=== PATIENT | female | born 1950 | race Hispanic/Latino ===

== ENCOUNTER → 2019-01-29 | Day surgery (SDC) | payer MEDICARE ==
[2019-01-23 16:08] LABS: BASOPHILS # (AUTO) 0.1 (0.0-0.1); EOSINOPHILS # (AUTO) 0.2 (0.0-0.4); EOSINOPHILS % 2.5 % (0.0-6.0); HEMATOCRIT 28.6 % (34.2-44.1); HEMOGLOBIN 9.9 g/dL (12.0-16.0); LYMPHOCYTES # (AUTO) 2.9 (1.0-3.2); LYMPHOCYTES % 42.4 % (18.0-39.1); MEAN CORPUSCULAR HEMOGLOBIN 30.7 pg (28-32); MEAN CORPUSCULAR HGB CONC 34.6 g/dL (31-35); MEAN CORPUSCULAR VOLUME 88.5 fL (81-99); MONOCYTES # (AUTO) 0.6 (0.2-0.8); MONOCYTES % 8.7 % (4.4-11.3); NEUTROPHILS # (AUTO) 3.1 (2.1-6.9); NEUTROPHILS % 45.3 % (38.7-80.0); PLATELET COUNT 201 x10e3/uL (140-360); RED BLOOD COUNT 3.23 x10e6/uL (3.6-5.1); RED CELL DISTRIBUTION WIDTH 12.1 % (11.7-14.4)
--- NOTE | 2019-01-23 16:15 | Diagnostic Imaging Report ---
Chest, 2 views, 01/23/2019. History: Preop, foot surgery. Comparison: None available. Findings: The cardiomediastinal silhouette and pulmonary vasculature are within normal limits. The lungs are clear without evidence of consolidation or pleural effusion. There are no acute osseous or soft tissue abnormalities. Impression: No acute cardiopulmonary abnormality. Signed by: Sudhir Weaver on 01/23/2019 4:11 PM
[2019-01-23 16:23] LABS: ANION GAP 12.4 mmol/L (8-16); CALCIUM 9.6 mg/dL (8.4-10.2); CREATININE, SERUM 1.19 mg/dL (0.57-1.11); POTASSIUM 4.4 mmol/L (3.5-5.1)
[~2019-01-29] MED LIST: ATORVASTATIN CA20 MG PO; BUPIVACAINE HCL 0.5% INJ 30 ML VIAL INJ ONE; CEFAZOLIN SOD 1 GM/NS 50ML 100 ML IV ONE; CRESTOR40 MG PO; DEXAMETHASONE SOD PHOS INJ 4 MG/ML VIAL ONE; GLIMEPIRIDE1 MG PO; GLIPIZIDE XL10 MG PO; IBUPROFEN200 MG PO; KETOROLAC TROMETHAMINE 30 MG/ML VIAL ONE; LEVOTHYROXINE75 MCG PO; LIDOCAINE HCL 2% LOCAL INJ 5 ML SDV VIAL INJ ONE; LISINOPRIL-HCT1 EACH; LOSARTAN-HCTZ1 EAC1 PO; METFORMIN HCL1000 MG PO; MUPIROCIN 2% OINT 22 GM TUBE ONE; ONDANSETRON HCL INJ 2MG/ML 2ML 2 MG/ML VIAL ONE; PRANDIN2 MG PO; PROPOFOL IV EMULSION 10 MG/ML 20 ML VIAL ONE; SERTRALINE HCL50 MG PO; SEVOFLURANE INHAL SOLN 250 ML PEN BTL ONE; XARELTO10 MG PO
--- OUTSIDE RECORDS SUMMARY | 2019-01-29 06:31 | XMS REPORT ---
Author Author [facility] Address Unknown Phone Unavailable Care Team Providers Care Picture Enlarger Name Role Phone ROBBI GARCIAS Unavailable Unavailable Problems This patient has no known problems. Allergies, Adverse Reactions, Alerts This patient has no known allergies or adverse reactions. Medications This patient has no known medications. Results Test Description Test Time Test Comments Text Results Atomic Results Result Comments CHEST 2 VIEWS 2019 16:11:00 [place] [id number] Patient Name: MCKENZIE JOY MR #: [id number] : 1950 Age/Sex: 69/F Req #: [id number] Adm Physician: Ordered by: HUNG LEE MD Report #: [id number] Location: OR Room/Bed: Procedure: [id number] DX/CHEST 2 VIEWS Exam Date: Exam Time: REPORT STATUS: Signed Chest, 2 views, 2019. History: Preop, foot surgery. Comparison: None available. Findings: The cardiomediastinal silhouette and pulmonary vasculature are within normal limits. The lungs are clear without evidence of consolidation or pleural effusion. There are no acute osseous or soft tissue abnormalities. Impression: No acute cardiopulmonary abnormality. Signed by: Sharita Weaver on 2019 4:11 PM Dictated By: SHARITA WEAVER MD 10 Transcribed By: MEJIA on 01/23/191610 COPY TO: HUNG LEE MD
[2019-01-29 10:25] VITALS: BP 140/68
--- NOTE | 2019-01-29 11:49 | Operative Report ---
DATE OF PROCEDURE: 01/29/2019 SURGEON: Court Bird DPM PREOPERATIVE DIAGNOSES: 1. Dislocated MPJ. 2. Plantar flexed, 2nd metatarsal. 3. Hammertoe, 2nd. POSTOPERATIVE DIAGNOSES: 1. Dislocated MPJ. 2. Plantar flexed, 2nd metatarsal. 3. Hammertoe, 2nd. PROCEDURES: 1. Tenotomy and capsulotomy, 2nd MPJ. 2. Dorsiflex ray osteotomy, 2nd. 3. Arthrodesis PIP, 2nd. PATHOLOGY: None. ANESTHESIA: General anesthetic. HEMOSTASIS: Pneumatic ankle tourniquet. ESTIMATED BLOOD LOSS: Less than 10 mL. MATERIALS: Human allograft was inserted to prevent adhesions to promote healing. COMPLICATIONS: None. CONDITION: Stable. PROCEDURE IN DETAIL: Under mild sedation, the patient was brought to the operating room, placed on the operative table in the supine position. Following IV sedation, anesthesia was obtained with a general anesthetic. At this point, the left foot scrubbed, prepped, and draped in usual aseptic manner. Attention was then directed to the 2nd MPJ, where the digit was completely dislocated. Utilizing a #15 blade, a linear incision was made overlying the MPJ. Incision was deepened down to the level of the capsule. Linear capsulotomy was performed. The capsule was then reflected off the head of the 2nd metatarsal. An areas of contracture at the medial aspects were loosened, utilizing a McGlamry elevator all contractures and adhesions were released. Attention was then directed to the 2nd metatarsal, where utilizing an oscillating saw, Phill osteotomy was performed through and through, it was then secured utilizing a screw. There was noted to be adequate alignment clinically and with the use of intraoperative fluoroscopy. Attention was then directed to the PIPJ joint, where a linear incision was made overlying the area. The incision was deepened down to the level of the tendon. The extensor tendon was then tenotomized in a transverse fashion. The PIPJ joint was then removed and it was then secured utilizing a Smart toe. There was noted to be adequate alignment clinically and with the use of intraoperative fluoroscopy. The use of human allograft was then inserted after the area was then flushed with copious amount of normal sterile saline solution. The capsule was then closed with 3-0 Vicryl and then the tendon with 3-0 Vicryl. Human allograft was inserted to prevent adhesions to promote healing and the skin was closed with 4-0 nylon. The patient tolerated the procedure and anesthesia well without complications, was transported to recovery room with vital signs stable and vascular status intact. The patient will be discharged home when she meets criteria. She was given instructions to be nonweightbearing to ice and elevate the foot while at rest. Followup with me in the office and to call the office for any questions, concerns, or new problems arise. MATTI Parada/LAVONL /[id number]
== END | disposition home or self-care (01) ==
LOC: OR 06:24
PROVIDERS: ATTEND Podiatrist Foot & Ankle Surgery
DX: S93.125A Dislocation of metatarsophalangeal joint of left lesser toe(s), initial encounter (principal); M21.272 Flexion deformity, left ankle and toes; M20.42 Other hammer toe(s) (acquired), left foot; M24.575 Contracture, left foot; E11.9 Type 2 diabetes mellitus without complications; E03.9 Hypothyroidism, unspecified; I10 Essential (primary) hypertension; E78.5 Hyperlipidemia, unspecified; F32.9 Major depressive disorder, single episode, unspecified; X58.XXXA Exposure to other specified factors, initial encounter; Z01.810 Encounter for preprocedural cardiovascular examination; Z01.812 Encounter for preprocedural laboratory examination; Z01.818 Encounter for other preprocedural examination; Z79.84 Long term (current) use of oral hypoglycemic drugs; Z89.421 Acquired absence of other right toe(s); Z96.652 Presence of left artificial knee joint
CPT/HCPCS: 28270; 28285; 28308; 36415 ×2; 71046; 80048; 82948; 85025; 93005; C1713; J0690; J1885; J2001; J2405; J2704; Q4150; 76000; J1100

== ENCOUNTER 2019-10-09 15:08 | Inpatient (IN) | payer MEDICARE, OTHER ==
[~2019-10-09] VITALS: Ht 162.6 cm; Wt 83.9 kg
[~2019-10-09 15:08] MED LIST changes: -BUPIVACAINE HCL 0.5% INJ 30 ML VIAL INJ ONE; -CEFAZOLIN SOD 1 GM/NS 50ML 100 ML IV ONE; -DEXAMETHASONE SOD PHOS INJ 4 MG/ML VIAL ONE; -KETOROLAC TROMETHAMINE 30 MG/ML VIAL ONE; -LIDOCAINE HCL 2% LOCAL INJ 5 ML SDV VIAL INJ ONE; -MUPIROCIN 2% OINT 22 GM TUBE ONE; -ONDANSETRON HCL INJ 2MG/ML 2ML 2 MG/ML VIAL ONE; -PROPOFOL IV EMULSION 10 MG/ML 20 ML VIAL ONE; -SEVOFLURANE INHAL SOLN 250 ML PEN BTL ONE
--- OUTSIDE RECORDS SUMMARY | 2019-10-09 15:12 | XMS REPORT ---
Author Author MCKENZIE DRISCOLL Organization Unknown Address Unknown Phone Care Team Providers Care Geomagnetician Name Role Phone MICHELE DRISCOLL PP Unavailable Reason for Referral No Reason for Referral was given. History of Present Illness No HPI available. Problems * Normal Routine History And Physical Adult (V70.0); (Active) * Dysthymic Disorder (300.4); (Active) * Hypertension (401.9); (Active) * Hypothyroidism (244.9); (Active) * Type 2 Diabetes Mellitus (250.00); (Active) * Vaccines Prophylactic Need (V05.9); (Active) Medication * Glimepiride 1 MG Oral Tablet; TAKE 1 TABLET DAILY. (Active) * MetFORMIN HCl 1000 MG Oral Tablet; TAKE 1 TABLET TWICE DAILY. (Active) * Lisinopril-Hydrochlorothiazide 20-12.5 MG Oral Tablet; TAKE 1 TABLET DAILY. (Active) * Sertraline HCl 50 MG Oral Tablet; TAKE 1 TABLET DAILY. (Active) * Levothyroxine Sodium 50 MCG Oral Tablet; TAKE 1 TABLET DAILY. (Active) * Vitamin E CAPS; 1000 daily (Active) * Calcium 600 TABS; TAKE 2 TABLETS DAILY. (Active) Allergies and Adverse Reactions * No Known Drug Allergies (Active) Past Medical History * History of Joint Pain, Localized (419.40); (Resolved) Procedures Procedure Procedure Date Date Completed Status Appendectomy - - Resolved Cholecystectomy - - Resolved Tubal Ligation - - Resolved Immunization * Tdap - Administered on: 09/29/2007 * Pneumo - Administered on: 02/29/2008 * Influenza - Administered on: 02/10/2012 * Fluzone Intramuscular Injectable (Lot #: [id number]) - Administered on: 06/06/2013 Family History * Family history of Denial Of Any Significant Medical History (Active) Social History * Marital History - Currently (Active) * Never A Smoker (Active) * Never Drank Alcohol (Active) Advance Directives * No Advance Directives available. Encounters * AUDIT 06/10/2013
--- OUTSIDE RECORDS SUMMARY | 2019-10-09 15:12 | XMS REPORT ---
Author Author MCKENZIE Green Organization Unknown Address Unknown Phone Care Team Providers Care Stitch Bonding Machine Drawer In Name Role Phone Nicky Green PP Reason for Referral No Reason for Referral was given. History of Present Illness No HPI available. Problems * Normal Routine History And Physical Adult (V70.0); (Active) * Type 2 Diabetes Mellitus (250.00); (Active) * Hypertension (401.9); (Active) * Hypothyroidism (244.9); (Active) * Dysthymic Disorder (300.4); (Active) Medication * Glimepiride 1 MG Oral [...] History * History of Joint Pain, Localized (846.40); (Resolved) Procedures Procedure Procedure Date Date Completed Status Appendectomy - - Resolved Cholecystectomy - - Resolved Tubal Ligation - - Resolved Immunization * Tdap - Administered on: 09/29/2007 * Pneumo - Administered on: 02/29/2008 * Influenza - Administered on: 02/10/2012 Family History * Family history of Denial Of Any Significant Medical History (Active) Social History * Marital History - Currently (Active) * Never A Smoker (Active) * Never Drank Alcohol (Active) Advance Directives * No Advance Directives available. Encounters * AUDIT 06/04/2013 * [facility], Provider: MICHELE DRISCOLL, Status: Rashid, Time: 8:30 AM 06/06/2013
--- OUTSIDE RECORDS SUMMARY | 2019-10-09 15:12 | XMS REPORT | Continuity of Care Document ---
Author Author [employer] [employer] Address Unknown Phone Unavailable Care Team Providers Care Web Press Operator Assistant Name Role Phone [employer] Unavailable Un available Problems Problem Status Onset Date Classification Date Reported Comments Source Type 2 Diabetes Mellitus Active 06/10/2013 [facility] Hypertension Active 06/10/2013 [facility] Hypothyroidism Active 06/10/2013 [facility] Dysthymic Disorder Active 06/10/2013 [facility] Vaccines Prophylactic Need Act dick 06/10/2013 [facility] Medications Medication Details Route Status Patient Instructions Ordering Provider Order Date Source Glimepiride 1 MG Oral Tablet (Active) Active [facility] MetFORMIN HCl 1000 MG Oral Tablet (Active) Active [facility] Lisinopril-Hydrochlorothiazide 20-12.5 MG Oral Tablet (Active) Active [facility] Sertraline HCl 50 MG Oral Tablet (Active) Active [facility] Levothyroxine Sodium 50 MCG Oral Tablet (Active) Active [facility] Vitamin E CAPS (Active) Active [facility] Calcium 600 TABS (Active) Active [facility] Allergies, Adverse Reactions, Alerts Substance Category Reaction Severity Reaction type Status Date Reported Comments Source No Known Drug Allergies drug a llergy drug aller gy Active [facility] Immunizations Immunization Date Given Site Status Last Updated Comments Source Fluzone Intramuscular Injectable 06/06/2013 completed [facility] Influenza 02/10/2012 completed [facility] Pneumo 02/29/2008 completed [facility] Tdap 09/29/2007 completed [facility] Results No Data Provided for This Section Pathology Reports No Data Provided for This Section Diagnostic Reports No Data Provided for This Section Consultation Notes No Data Provided for This Section Discharge Summaries No Data Provided for This Section History and Physicals No Data Provided for This Section Vital Signs No Data Provided for This Section Encounters Location Location Details Encounter Type Encounter Number Reason For Visit Attending Provider ADM Date DC Date Status Source AUDIT [id number] 06/04/2013 06/04/2013 [facility] Guille COLLIER beka: MICHELE DRISCOLL, Status: Pen, Time: 8:30 AM [id number] 06/06/19 14 06/04/2013 [facility] AUDIT [id number] 06/10/2013 06/10/2013 [facility] Procedures No Data Provided for This Section Assessment and Plan No Data Provided for This Section Plan of Care No Data Provided for This Section Social History Social History Date Source Marital History - Currently (Active) Never A Smoker (Active) Never Drank Alcohol (Active) 06/10/2013 [facility] Family History Value Date S ource Family history of Denial Of Any Signific ant Medical History (Active) 06/10/2013 [facility] Family history of Denial Of Any Signific ant Medical History (Active) 06/04/2013 [facility] Advance Directives Order Name Results Value Date Source Advance Directives Advance Dir ectives No Advance Directives available. 06/10/2013 [facility] Advance Directives Advance Dir ectives No Advance Directives available. 06/04/2013 [facility] Functional Status No Data Provided for This Section
[2019-10-09] MEDS ORDERED: ONDANSETRON HCL INJ 2MG/ML 2ML 2 MG/ML VIAL IV STA (15:48)
[2019-10-09] MEDS ORDERED: PANTOPRAZOLE 40 MG 10ML VIAL IV STA (15:48)
[2019-10-09] MEDS ORDERED: SODIUM CHLORIDE 0.9% 500ML 500 ML IV ONE (16:00)
[2019-10-09 16:32] LABS: BASOPHILS % 0.2 % (0.0-1.0); EOSINOPHILS # (AUTO) 0.8 (0.0-0.4); EOSINOPHILS % 13.7 % (0.0-6.0); HEMATOCRIT 30.6 % (34.2-44.1); HEMOGLOBIN 9.9 g/dL (12.0-16.0); LYMPHOCYTES # (AUTO) 1.5 (1.0-3.2); LYMPHOCYTES % 25.9 % (18.0-39.1); MEAN CORPUSCULAR HEMOGLOBIN 28.4 pg (28-32); MEAN CORPUSCULAR HGB CONC 32.4 g/dL (31-35); MEAN CORPUSCULAR VOLUME 87.9 fL (81-99); MONOCYTES # (AUTO) 0.5 (0.2-0.8); MONOCYTES % 9.4 % (4.4-11.3); NEUTROPHILS # (AUTO) 2.9 (2.1-6.9); NEUTROPHILS % 50.3 % (38.7-80.0); PLATELET COUNT 161 x10e3/uL (140-360); RED BLOOD COUNT 3.48 x10e6/uL (3.6-5.1); RED CELL DISTRIBUTION WIDTH 13.2 % (11.7-14.4)
[2019-10-09 16:38] LABS: INR 0.99; PROTHROMBIN TIME 13.7 seconds (11.9-14.5)
[2019-10-09 16:39] LABS: PARTIAL THROMBOPLASTIN TIME 29.7 seconds (23.8-35.5)
[2019-10-09 16:41] LABS: BILIRUBIN,URINE NEGATIVE (NEGATIVE); CLARITY,URINE SL CLOUDY (CLEAR); COLOR,URINE YELLOW (YELLOW); KETONES,URINE TRACE (NEGATIVE); LEUKOCYTE ESTERASE ,URINE NEGATIVE (NEGATIVE); NITRITE,URINE NEGATIVE (NEGATIVE); PROTEIN,URINE DIPSTICK 2+ (NEGATIVE); URINE UROBILINOGEN 0.2 mg/dL (0.2 - 1)
[2019-10-09 16:52] LABS: ALBUMIN 3.8 g/dL (3.5-5.0); ANION GAP 14.9 mmol/L (8-16); CALCIUM 8.8 mg/dL (8.4-10.2); CREATININE, SERUM 1.77 mg/dL (0.57-1.11); POTASSIUM 3.9 mmol/L (3.5-5.1)
--- NOTE | 2019-10-09 16:54 | Diagnostic Imaging Report ---
EXAMINATION: CHEST SINGLE (PORTABLE) INDICATION: Dizziness, fatigue COMPARISON: Chest radiograph 01/23/2019 FINDINGS: LINES/TUBES:None LUNGS:The lungs are well-inflated. No focal consolidation or pulmonary edema. PLEURA:No pleural effusion or pneumothorax. MEDIASTINUM:The cardiomediastinal silhouette appears normal in size and shape. BONES/SOFT TISSUES:No acute osseous injury. ABDOMEN:No free air under the diaphragm. IMPRESSION: No focal pneumonia or pulmonary edema. Signed by: Louie Joshi MD on 10/09/2019 4:51 PM
[2019-10-09 16:56] LABS: BACTERIA,URINE MODERATE /HPF; WBC,URINE (MAN) 0-5 /HPF (0-5)
[2019-10-09 16:57] LABS: AMORPHOUS SEDIMENT,URINE MODERATE (FEW); EPITHELIAL CELLS,URINE MODERATE /LPF
[2019-10-09 16:58] LABS: CREATINE KINASE MB 10.1 ng/mL (0-5.0)
[2019-10-09] MEDS ORDERED: SODIUM CHLORIDE 0.9% 1000ML 1,000 ML IV SCH (17:45)
[2019-10-09] MEDS ORDERED: DEXTROSE 50% SYRINGE 50 ML IV PRN (17:45)
[2019-10-09] MEDS ORDERED: ONDANSETRON HCL INJ 2MG/ML 2ML 2 MG/ML VIAL IV PRN (17:45)
--- NOTE | 2019-10-09 17:56 | Diagnostic Imaging Report ---
Exam: Head CT without contrast History: Dizziness, headache Comparison studies: None Technique: Axial images were obtained from the skull base to the vertex. Coronal and sagittal images reconstructed from the axial data. Dose modulation, iterative reconstruction, and/or weight based adjustment of the mA/kV was utilized to reduce the radiation dose to as low as reasonably achievable. Radiation dose: Total DLP: 921.4 mGy*cm. Estimated effective dose: DLP x 0.015 Intravenous contrast: None Findings: Scalp: No abnormalities. Bones: No fractures, blastic or lytic lesions. Brain sulci: Sylvian fissures are mildly prominent Ventricles: Mild compensatory dilatation. No hydrocephalus. Extra-axial spaces: No masses, no fluid collection. Parenchyma: Chronic cortical/subcortical insult with encephalomalacia present in the left middle frontal gyrus. A few scattered hypodensities in the supratentorial white matter are nonspecific but are most compatible with chronic microvascular ischemic changes. Sellar/suprasellar region: No abnormalities. Craniocervical junction: Patent foramen magnum. No Chiari one malformation. Incidental findings: Atherosclerotic calcifications in the carotid siphons. IMPRESSION: No acute intracranial abnormalities. Chronic findings: 1. Mild generalized parenchymal volume loss. 2. Small chronic left middle frontal insult. 3. Mild chronic microvascular ischemic changes. Signed by: Dr. Ike Jaramillo M.D. on 10/09/2019 5:52 PM
--- OUTSIDE RECORDS SUMMARY | 2019-10-09 17:56 | XMS REPORT | Continuity of Care Document ---
Author Author [employer] Address Unknown Phone Unavailable Care Team Providers Care Hydraulic Auto Jack Mechanic Name Role Phone [employer] Unavailable Un available Problems Problem Status Onset Date Classification Date Reported Comments Source Type 2 Diabetes Mellitus Active 06/10/2013 [facility] Hypertension Active 06/10/2013 [facility] Hypothyroidism Active 06/10/2013 [facility] Dysthymic Disorder Active 06/10/2013 [facility] Vaccines Prophylactic Need Act dick 06/10/2013 [facility] Medications Medication Details Route Status Patient Instructions Ordering Provider Order Date Source Glimepiride 1 MG Oral Tablet (Active) Active [facility] MetFORMIN HCl 1000 MG Oral Tablet (Active) Active [facility] Lisinopril-Hydrochlorothiazide 20-12.5 MG Oral Tablet (Active) Active [facility] Sertraline HCl 50 MG Oral Tablet (Active) Active [facility] Levothyroxine Sodium 50 MCG Oral Tablet (Active) Active [facility] Vitamin E CAPS (Active) Active [facility] Calcium 600 TABS (Active) Active [facility] Allergies, Adverse Reactions, Alerts Substance Category Reaction Severity Reaction type Status Date Reported Comments Source No Known Drug Allergies drug a llergy drug aller gy Active [facility] Immunizations Immunization Date Given Site Status Last Updated Comments Source Fluzone Intramuscular Injectable 06/06/2013 completed [facility] Influenza 02/10/2012 completed [facility] Pneumo 02/29/2008 completed [facility] Tdap 09/29/2007 completed [facility] Results No Data Provided for This [...] ADM Date DC Date Status Source AUDIT [id number] 06/04/2013 06/04/2013 [facility] Guille COLLIER beka: MICHELE DRISCOLL, Status: Pen, Time: 8:30 AM [id number] 06/06/19 14 06/04/2013 [facility] AUDIT [id number] 06/10/2013 06/10/2013 [facility] Procedures No Data Provided for This Section Assessment and Plan No Data Provided for This Section Plan of Care No Data Provided for This Section Social History Social History Date Source Marital History - Currently (Active) Never A Smoker (Active) Never Drank Alcohol (Active) 06/10/2013 [facility] Family History Value Date S ource Family history of Denial Of Any Signific ant Medical History (Active) 06/10/2013 [facility] Family history of Denial Of Any Signific ant Medical History (Active) 06/04/2013 [facility] Advance Directives Order Name Results Value Date Source Advance Directives Advance Dir ectives No Advance Directives available. 06/10/2013 [facility] Advance Directives Advance Dir ectives No Advance Directives available. 06/04/2013 [facility] Functional Status No Data Provided for This Section
[2019-10-09] MEDS ORDERED: CEFDINIR300 MG PO (20:20)
[2019-10-09] MEDS ORDERED: LEVOTHYROXINE50 MCG PO (20:20)
[2019-10-09] MEDS ORDERED: OMEPRAZOLE40 MG PO (20:23)
[2019-10-09] MEDS ORDERED: METFORMIN HCL1000 M1 PO (20:23)
[2019-10-09] MEDS ORDERED: VITAMIN E400 UNI1 PO (20:23)
[2019-10-09] MEDS ORDERED: MECLIZINE HCL12.5 MG PO (20:24)
[2019-10-09 20:50] VITALS: BP 126/55
[2019-10-09] MEDS: INSULIN LISPRO 100 UNIT/1 ML 3ML VIAL SQ SCH (21:00)
--- NOTE | 2019-10-09 21:15 | NUR ---
PATIENT ARRIVED TO FLOOR STABLE WITH NO C/O PAIN OR DISCOMFORT. WAS CHANGED INTO HOSPITAL GOWN, TAKEN TO BATHROOM WITH USE OF WALKER AND EDUCATED ON ROOM SETUP. CALLED AND NOTIFIED DR. MORGAN OF PT ARRIVAL AND OFFERED TO CONT MEDS BUT STATES HE WILL HANDLE IN AM. COMPLETED ADMISSION.
[2019-10-09 21:33] VITALS: BP 126/55
[2019-10-09 21:45] VITALS: BP 126/55
--- NOTE | 2019-10-09 23:30 | NUR ---
RECEIVED REPORT FROM NURSE, PATIENT CONTINUE RESTING, NO DISTRESS NOTED. CALL LIGHT IN REACH. WILL CONTINUE TO MONITOR.
[2019-10-10] VITALS (7 sets, daily range): BP systolic 107–131; BP diastolic 53–65
--- NOTE | 2019-10-10 04:00 | NUR ---
CONTINUE RESTING, IV CONTINUE INFUSING, CALL LIGHT REMAIN IN REACH. WILL CONTINUE TO MONITOR.
[2019-10-10 06:01] LABS: BASOPHILS % 0.5 % (0.0-1.0); EOSINOPHILS # (AUTO) 0.7 (0.0-0.4); EOSINOPHILS % 13.3 % (0.0-6.0); HEMATOCRIT 28.6 % (34.2-44.1); HEMOGLOBIN 9.1 g/dL (12.0-16.0); LYMPHOCYTES # (AUTO) 1.9 (1.0-3.2); LYMPHOCYTES % 33.9 % (18.0-39.1); MEAN CORPUSCULAR HEMOGLOBIN 28.5 pg (28-32); MEAN CORPUSCULAR HGB CONC 31.8 g/dL (31-35); MEAN CORPUSCULAR VOLUME 89.7 fL (81-99); MONOCYTES # (AUTO) 0.4 (0.2-0.8); MONOCYTES % 7.7 % (4.4-11.3); NEUTROPHILS # (AUTO) 2.5 (2.1-6.9); NEUTROPHILS % 44.2 % (38.7-80.0); PLATELET COUNT 148 x10e3/uL (140-360); RED BLOOD COUNT 3.19 x10e6/uL (3.6-5.1); RED CELL DISTRIBUTION WIDTH 13.2 % (11.7-14.4)
--- NOTE | 2019-10-10 06:14 | NUR ---
H&P cc: diarrhea for 1 day HPI: 69yoF, PCP , developed diarrhea for 1 day; denies f/c/s. PMH: OA, anemia, hypothyroidism, DM2 PShx: cholecystectomy, appendectomy Allergies; see emr Fh/Sh; ; no cigs meds; see MAR ROS: no f/c/s/n/V/KENNEDY/cp/sob/skin rash/back pain/dizziness/vision changes/focal limb weakness v/sr revd PE tired appearing anicteric ns1s2 mod bs soft ntnd no e/t skin dyr flat affect alert labs/meds revd A/P: Diarrhea- flagyl GERRY- rehydrate Anemia- moderate UTI- IV abx DM2- hab1c/lipids Obesity- caloric restriction needed BMI 31.8 Prop: scd DIspo; PT consult; Jimmy Aldana MD, PhD
[2019-10-10 06:16] LABS: ALBUMIN 3.2 g/dL (3.5-5.0); ANION GAP 12.7 mmol/L (8-16); CALCIUM 8.1 mg/dL (8.4-10.2); CREATININE, SERUM 1.34 mg/dL (0.57-1.11); POTASSIUM 3.7 mmol/L (3.5-5.1)
[2019-10-10] MEDS ORDERED: ACETAMINOPHEN 325 MG TAB PO PRN (06:30)
[2019-10-10] MEDS ORDERED: ONDANSETRON HCL INJ 2MG/ML 2ML 2 MG/ML VIAL IV PRN (06:30)
[2019-10-10] MEDS ORDERED: DOCUSATE SODIUM 100 MG CAP PO PRN (06:30)
[2019-10-10] MEDS ORDERED: MECLIZINE HCL 12.5 MG TAB PO PRN (06:30)
[2019-10-10] MEDS: LEVOTHYROXINE SODIUM 50 MCG TAB PO SCH (07:06)
[2019-10-10] MEDS: CEFTRIAXONE SOD 1 GM/NS 50 ML 50 ML IV SCH (07:06)
--- NOTE | 2019-10-10 07:10 | NUR ---
PATIENT IS AWAKE, ALERT, AND IN STABLE CONDITION WITH NO S/S OF RESPIRATORY DISTRESS. NO PAIN VOICED. IV FLUIDS INFUSING. TELEMETRY APPLIED. PATIENT'S PERSONAL WALKER IS AVAILABLE FOR PATIENT IN ROOM. BED ALARM APPLIED. CALL LIGHT IS WITHIN REACH, PATIENT INSTRUCTED TO CALL FOR ASSISTANCE NEEDED.
[2019-10-10 07:23] LABS: CHOL/HDL RATIO 2.7 (3.0-3.6)
[2019-10-10] MEDS: INSULIN LISPRO 100 UNIT/1 ML 3ML VIAL SQ SCH ×4 (07:30→20:39)
[2019-10-10 07:36] LABS: CREATINE KINASE MB 7.6 ng/mL (0-5.0)
[2019-10-10] MEDS: SERTRALINE HCL 50 MG TAB PO SCH (08:18)
[2019-10-10] MEDS: PANTOPRAZOLE SOD 40 MG TABEC PO SCH (08:18)
[2019-10-10 10:02] LABS: EOSINOPHILS % (MANUAL) 10 % (0-7); LYMPHOCYTES % (MANUAL) 41 % (19-48); MONOCYTES % (MANUAL) 7 % (3.4-9.0); NEUTROPHILS % (MANUAL) 42 % (40-74); PLATELET ESTIMATE ADEQUATE; PLATELET MORPHOLOGY COMMENT NORMAL; RBC MORPHOLOGY COMMENT NORMAL
[2019-10-10] MEDS: SODIUM CHLORIDE 0.9% 1000ML 1,000 ML IV SCH ×2 (11:15→23:05)
--- NOTE | 2019-10-10 14:26 | NUR ---
PATIENT IS IN STABLE CONDITION WITH NO S/S OF RESPIRATORY DISTRESS. NO PAIN VOICED. TELEMETRY APPLIED. PATIENT OFF THE UNIT TO MRI.
[2019-10-10 14:35] LABS: CREATINE KINASE 52 IU/L (29-168)
[2019-10-10 14:45] LABS: CREATINE KINASE MB < 1.00 ng/mL (0-4.3)
--- NOTE | 2019-10-10 18:32 | Diagnostic Imaging Report ---
History: Dizziness, incontinence and decreased rectal tone Comparison studies: None Technique: Sagittal and axial T2 FS, axial DWI, axial T2*GRE, axial T1 FLAIR and axial coronal T2 FLAIR. Intravenous contrast: None Findings: Scalp: Normal in signal. No masses. Bone marrow: Normal in signal intensity. Brain sulci: Sylvian fissures are mildly prominent.. Ventricles: Mild compensatory dilatation. No hydrocephalus. Extra axial spaces: No mass, no fluid collection. Parenchyma: No mass, hemorrhage or acute ischemia. Chronic cortical/subcortical insults along the left middle frontal gyrus and right temporal subcortical white matter are unchanged. A few scattered and mildly confluent T2 FLAIR hyperintense foci in the supratentorial white matter are nonspecific but are most compatible with chronic microvascular ischemic changes. Age-related T2 FLAIR hyperintense signal changes present in the periventricular white matter. Suprasellar region: No abnormalities. Craniocervical junction: Patent foramen magnum. No Chiari malformation. Vessels: Normal flow-voids in the arteries and sinuses. IMPRESSION: No acute intracranial abnormalities. Chronic findings: 1. Mild generalized parenchymal volume loss. 2. Small chronic left middle frontal and right temporal insults. 3. Mild to moderate supratentorial microvascular ischemic changes. Signed by: Dr. Ike Jaramillo M.D. on 10/10/2019 6:29 PM
--- NOTE | 2019-10-10 18:49 | Diagnostic Imaging Report ---
History: Dizziness, incontinence, decreased rectal tone Comparison studies: None Technique: Sagittal and axial T1 and T2, sagittal STIR and axial T2*GRE. Intravenous contrast: None Findings: Alignment: Normal lordosis. No scoliosis. Minimal anterolisthesis of T2 on T3 is most likely degenerative in etiology. Cervicomedullary junction: No abnormalities. Patent foramen magnum. Soft tissues: No T2 hyperintense inflammatory changes. Spinal cord: Normal in size and grossly normal in signal from the foramen magnum through T1. Vertebrae: No fractures, infection or neoplasm. Degenerative changes: Loss of T2 disc signal at all cervical levels and within the included upper thoracic discs. C2-C3: Mild facet arthrosis. No significant canal or foraminal stenosis. C3-C4: Mild facet arthrosis. Patent canal and foramina. C4-C5: Small disc bulge and thickened ligamentum flavum result in mild canal stenosis. Moderate right facet arthrosis without significant foraminal stenosis. Patent left foramen. C5-C6: Mild canal stenosis due to an asymmetric right disc osteophyte complex. Moderate right and mild left foraminal stenosis due to uncovertebral arthrosis. Patent left foramen. C6-C7: Mild canal stenosis due to disc osteophyte complex and thickened ligamentum flavum. Moderate bilateral foraminal stenosis due to uncovertebral arthrosis. C7-T1: Patent canal and foramina. IMPRESSION: 1. Mild multilevel disc degeneration, greatest at C5-C6 and at C6-C7. 2. Mild degenerative canal stenosis from C4 to C7. 3. Moderate foraminal stenosis on the right at C5-C6 and C6-C7. 4. Multilevel facet arthrosis. Signed by: Dr. Ike Jaramillo M.D. on 10/10/2019 6:46 PM
--- NOTE | 2019-10-10 19:23 | NUR ---
PATIENT IS IN STABLE CONDITION WITH NO S/S OF RESPIRATORY DISTRESS. NO PAIN VOICED. IV FLUIDS INFUSING. TELEMETRY APPLIED. CALL LIGHT IS WITHIN REACH, PATIENT INSTRUCTED TO CALL FOR ASSISTANCE NEEDED. BEDSIDE REPORT GIVEN TO ONCOMING NURSE.
--- NOTE | 2019-10-10 19:29 | NUR ---
RECEIVED REPORT FROM 7AM NURSE, PATIENT RESTING IN BED, NO DISTRESS NOTED. TRANSFERRED FROM THE RESTROOM TO THE BED WITH ASSISTANCE OF A WALKER, WILL CONTINUE TO MONITOR.
[2019-10-10] MEDS: ATORVASTATIN 40 MG TAB PO SCH (20:27)
[2019-10-10] MEDS ORDERED: ZOLPIDEM TARTRATE 5 MG TAB PO PRN (21:00)
[2019-10-11] VITALS (8 sets, daily range): BP systolic 107–143; BP diastolic 49–67
[2019-10-11] MEDS: SODIUM CHLORIDE 0.9% 1000ML 1,000 ML IV SCH (01:06)
--- NOTE | 2019-10-11 05:42 | NUR ---
22g restarted to left forearm, tolerated well, old saline lock removed and catheter remain intact.
[2019-10-11] MEDS: LEVOTHYROXINE SODIUM 50 MCG TAB PO SCH (05:43)
[2019-10-11] MEDS: CEFTRIAXONE SOD 1 GM/NS 50 ML 50 ML IV SCH (06:16)
--- NOTE | 2019-10-11 06:16 | NUR ---
PATIENT CONTINUE RESTING, IV INFUSING, CALL LIGHT IN REACH. WILL CONTINUE TO MONITOR.
--- NOTE | 2019-10-11 07:33 | NUR ---
REPORT GIVEN TO AM NURSE.
--- NOTE | 2019-10-11 07:35 | Diagnostic Imaging Report ---
Exams: Thoracic and lumbar spine MRIs without IV contrast History: Incontinence, decreased rectal tone. Comparison studies: None Technique: Sagittal and axial coronal T2, sagittal T1, sagittal STIR through the thoracic and lumbar spines and axially proton density and axial T2 FS through the lumbar spine to Findings: Number of lumbar vertebral bodies:5. Alignment: Normal thoracic kyphosis with mild upper thoracic dextrocurvature. Mild increased lumbar lordosis with mild lower lumbar levocurvature. Minimal degenerative anterolisthesis of T2 on T3. Lower thoracic cord: Normal in signal and morphology. The tip of the conus is at L2. Cauda equina nerve roots: No mass, no evidence for arachnoiditis. Soft tissues: No gross acute abnormalities. Incidental small hiatal hernia small bilateral T2 hyperintense renal cysts. Dorsal paraspinal muscles: Mild symmetric atrophic changes which are slightly greater at the lumbosacral junction. Vertebrae: No compression fracture, infection or neoplasm. Degenerative changes: Thoracic spine: Mild multilevel disc degeneration with loss of T2 disc signal. Small disc bulge at T11-T12 indent the thecal sac without significant canal stenosis. Facet arthrosis present at T2-T3. No significant foraminal stenosis. Lumbar spine: L1-L2: Mildly degenerate disc with symmetric bulging disc without canal or foraminal stenosis. L2-L3: Mildly degenerated disc with symmetric bulging disc without canal or foraminal stenosis. L3-L4: Mildly degenerated disc small annular fissure. Reactive endplate changes present on the left with mild edema along the left inferior L3 endplate adjacent to and anterior marginal disc osteophyte complex. Asymmetric left disc bulge with mild facet arthrosis result in mild left foraminal stenosis. Patent canal and right foramen. Small bilateral facet effusions are present. L4-L5: Mildly degenerated disc. Symmetric disc bulge and mild facet arthrosis result in mild bilateral foraminal stenosis. Patent spinal canal. Small bilateral facet effusions are present. L5-S1: Mildly degenerated disc with central annular fissure. Symmetric disc bulge and moderate right and mild left facet arthrosis. Patent canal and foramina. Right facet effusion is present. IMPRESSION: Thoracic and lumbar spines: 1. No acute abnormalities. 2. Mild multilevel disc degeneration and multilevel facet arthrosis without significant canal or foraminal stenosis. Signed by: Dr. Ike Jaramillo M.D. on 10/11/2019 7:31 AM
--- NOTE | 2019-10-11 08:10 | NUR ---
IM- progress note O/N see below ROS: no f/c/s/n/V/KENNEDY/cp/sob/skin rash/back pain/dizziness/vision changes/focal limb weakness v/sr revd PE tired appearing anicteric ns1s2 mod bs soft ntnd no e/t skin dyr flat affect alert labs/meds revd A/P: Diarrhea- flagyl GERRY- rehydrate Anemia- moderate UTI- IV abx DM2- hab1c/lipids Obesity- caloric restriction needed BMI 31.8 Prop: scd DIspo; PT consult; 5-8 Mild multilevel DDD in cervical spine; Moderate foraminal stenosis on right at C5-6-7.Hba1c/LDL 8.3/10. CHeck renal fn. Cultures negative to date. COnt fluids; improving; Jimmy Aldana MD, PhD
[2019-10-11] MEDS: PANTOPRAZOLE SOD 40 MG TABEC PO SCH (08:49)
[2019-10-11] MEDS: SERTRALINE HCL 50 MG TAB PO SCH (08:49)
[2019-10-11] MEDS: INSULIN LISPRO 100 UNIT/1 ML 3ML VIAL SQ SCH ×4 (08:55→21:33)
[2019-10-11 10:23] LABS: ANION GAP 13.7 mmol/L (8-16); CREATININE, SERUM 1.15 mg/dL (0.57-1.11); POTASSIUM 3.7 mmol/L (3.5-5.1)
[2019-10-11] MEDS ORDERED: ONDANSETRON HCL 4 MG ORAL DISINTEGRATING TAB PO PRN (15:45)
--- NOTE | 2019-10-11 18:25 | NUR ---
Dr. Aldana was contacted about plan of care for patient and he stated he wanted to keep her on IV fluids. Patient is still having GERRY. Patient was informed of this information. Patient is still getting IV fluids 75 mL/hr.
[2019-10-11] MEDS: ATORVASTATIN 40 MG TAB PO SCH (21:12)
[2019-10-12] VITALS (7 sets, daily range): BP systolic 129–147; BP diastolic 63–80
--- NOTE | 2019-10-12 05:45 | NUR ---
Received patient from day nurse, patient is alert and oriented x 3. patient is on room air. safety and fall precautions maintained as per hospital protocol: bed in lowest position and locked, needed items beside bed, and call miller placed close to patient, patient is currently stable, will continue to monitor.
[2019-10-12] MEDS: SODIUM CHLORIDE 0.9% 1000ML 1,000 ML IV SCH ×3 (05:55→21:06)
[2019-10-12] MEDS: CEFTRIAXONE SOD 1 GM/NS 50 ML 50 ML IV SCH (05:55)
[2019-10-12] MEDS: LEVOTHYROXINE SODIUM 50 MCG TAB PO SCH (05:55)
[2019-10-12] MEDS: INSULIN LISPRO 100 UNIT/1 ML 3ML VIAL SQ SCH ×4 (08:45→21:00)
[2019-10-12] MEDS: PANTOPRAZOLE SOD 40 MG TABEC PO SCH (08:55)
[2019-10-12] MEDS: SERTRALINE HCL 50 MG TAB PO SCH (08:55)
--- NOTE | 2019-10-12 11:23 | NUR ---
Discontinuing PT services since patient is Mod I in functional mobility. Thank you Addendum: 10/12/19 at 1124 by Jose singh PT Amended: Links added.
--- NOTE | 2019-10-12 11:36 | NUR ---
IM- progress note O/N see below ROS: no f/c/s/n/V/KENNEDY/cp/sob/skin rash/back pain/dizziness/vision changes/focal limb weakness v/sr revd PE tired appearing anicteric ns1s2 mod bs soft ntnd no e/t skin dyr flat affect alert labs/meds revd A/P: Diarrhea- flagyl GERRY- rehydrate Anemia- moderate UTI- IV abx DM2- hab1c/lipids Obesity- caloric restriction needed BMI 31.8 Prop: scd DIspo; PT consult; 5-8 Mild multilevel DDD in cervical spine; Moderate foraminal stenosis on right at C5-6-7.Hba1c/LDL 8.3/10. CHeck renal fn. Cultures negative to date. COnt fluids; improving; 5-9 d/c if renal fn continues to improve. Jimmy Aldana MD, PhD
[2019-10-12 12:33] LABS: ANION GAP 10.6 mmol/L (8-16); CALCIUM 8.1 mg/dL (8.4-10.2); CREATININE, SERUM 1.06 mg/dL (0.57-1.11); POTASSIUM 3.6 mmol/L (3.5-5.1)
--- NOTE | 2019-10-12 19:00 | NUR ---
RECEIVED PATIENT IN BEDSIDE SHIFT REPORT. PATIENT RESTING IN BED AT THIS TIME. NO PAIN OR DIZZINESS REPORTED. NO S&S OF DISTRESS NOTED. IV TO L HAND 20G ASYMPTOMATIC, INTACT, AND PATENT, RUNNING NS @ 75 ML/HR. TELE MONITOR ON. NO NEEDS EXPRESSED AT THIS TIME. BED LOCKED IN LOWEST POSITION, SIDE RAILS UPX2, CALL LIGHT IN REACH.
[2019-10-12] MEDS: ATORVASTATIN 40 MG TAB PO SCH (21:06)
[2019-10-13] VITALS: BP 163/67
[2019-10-13 04:00] VITALS: BP 122/60
--- NOTE | 2019-10-13 05:32 | NUR ---
D/C summary Principal Dx: Diarrhea- flagyl GERRY- rehydrate Anemia- moderate UTI- IV abx Cervical foraminal stenosis on right at C5-6-7. Likely CKD3 due to DM2 Secondary Dx: DM2- hab1c/lipids Obesity- caloric restriction needed BMI 31.8 Prop: scd DIspo; PT consult; 5-8 Mild multilevel DDD in cervical spine; Moderate foraminal stenosis on right at C5-6-7.Hba1c/LDL 8.3/10. CHeck renal fn. Cultures negative to date. COnt fluids; improving; 5-9 d/c if renal fn continues to improve. d/c home f/u pcp 1 week stable d/c>35mins Jimmy Aldana MD, PhD
[2019-10-13] MEDS: CEFTRIAXONE SOD 1 GM/NS 50 ML 50 ML IV SCH (05:50)
[2019-10-13] MEDS: LEVOTHYROXINE SODIUM 50 MCG TAB PO SCH (05:50)
[2019-10-13] MEDS: PANTOPRAZOLE SOD 40 MG TABEC PO SCH (07:54)
[2019-10-13] MEDS: SERTRALINE HCL 50 MG TAB PO SCH (07:54)
[2019-10-13] MEDS: INSULIN LISPRO 100 UNIT/1 ML 3ML VIAL SQ SCH (07:55)
[2019-10-13 08:00] VITALS: BP 143/69
[2019-10-13 08:20] VITALS: BP 143/69
[2019-10-13 08:52] VITALS: BP 143/69
--- NOTE | 2019-10-13 09:41 | NUR ---
Patient recieved discharge order from Dr. Aldana. Patient was given discharge orders and explained to her well. Patient's IV was removed at 0915. Patient was brought to her daugher's car via wheelchair by this typewriter operator automatic and this typewriter operator automatic explained discharge orders and to follow up with provider in 1 week (October 20). Patient and daughter verbalized understanding. No other questions at this time.
== END 2019-10-13 09:27 | disposition home or self-care (01) | DRG 392 ==
LOC: ER 15:08 → ERHOLD 17:47 → MED/SURG3 20:42
PROVIDERS: ADMIT Internal Medicine; ATTEND Internal Medicine
DX: A09 Infectious gastroenteritis and colitis, unspecified (principal); N17.9 Acute kidney failure, unspecified; N39.0 Urinary tract infection, site not specified; D64.9 Anemia, unspecified; E66.9 Obesity, unspecified; Z68.31 Body mass index [BMI] 31.0-31.9, adult; E11.9 Type 2 diabetes mellitus without complications; M48.02 Spinal stenosis, cervical region; I12.9 Hypertensive chronic kidney disease with stage 1 through stage 4 chronic kidney disease, or unspecified chronic kidney disease; E11.22 Type 2 diabetes mellitus with diabetic chronic kidney disease; N18.3 Chronic kidney disease, stage 3 (moderate)
CPT/HCPCS: 36415; 70450; 70551; 71045; 72141; 72146; 72148; 80048; 80053; 80061; 81001; 82550; 82553; 82948; 83036; 83735; 84484; 85025; 85610; 85730; 87086; 87635; 93005; 96361; 96372; 97139; 99284; J0696; J2405; J7030; J7040

== ENCOUNTER 2021-01-27 15:31 | Emergency (ER) | payer MEDICARE, OTHER ==
[~2021-01-27] VITALS: Ht 162.6 cm; Wt 83.9 kg
[~2021-01-27 15:31] MED LIST changes: +CEFDINIR300 MG PO; +LEVOTHYROXINE50 MCG PO; +MECLIZINE HCL12.5 MG PO; +METFORMIN HCL1000 M1 PO; +OMEPRAZOLE40 MG PO; +VITAMIN E400 UNI1 PO
[2021-01-27 17:26] LABS: BASOPHILS # (AUTO) 0.1 (0.0-0.1); BASOPHILS % 1.3 % (0.0-1.0); EOSINOPHILS # (AUTO) 0.1 (0.0-0.4); EOSINOPHILS % 2.7 % (0.0-6.0); LYMPHOCYTES # (AUTO) 2.1 (1.0-3.2); LYMPHOCYTES % 44.2 % (18.0-39.1); MEAN CORPUSCULAR HEMOGLOBIN 22.9 pg (28-32); MEAN CORPUSCULAR VOLUME 76.4 fL (81-99); MONOCYTES # (AUTO) 0.4 (0.2-0.8); MONOCYTES % 9.3 % (4.4-11.3); NEUTROPHILS % 42.3 % (38.7-80.0); PLATELET COUNT 277 x10e3/uL (140-360); RED BLOOD COUNT 2.84 x10e6/uL (3.6-5.1); RED CELL DISTRIBUTION WIDTH 16.1 % (11.7-14.4)
[2021-01-27 17:32] LABS: INR 1.06
[2021-01-27 17:33] LABS: HEMATOCRIT 21.7 % (34.2-44.1); HEMOGLOBIN 6.5 g/dL (12.0-16.0)
[2021-01-27 17:42] LABS: ALBUMIN 4.1 g/dL (3.5-5.0); ALBUMIN/GLOBULIN RATIO 1.3 (0.8-2.0); ANION GAP 21.8 mmol/L (8-16); CALCIUM 8.9 mg/dL (8.4-10.2); CREATININE, SERUM 1.81 mg/dL (0.57-1.11); POTASSIUM 3.8 mmol/L (3.5-5.1)
[2021-01-27] MEDS ORDERED: SODIUM CHLORIDE 0.9% 250ML 250 ML IV ONE (17:45)
[2021-01-27 20:34] LABS: CLARITY,URINE SL CLOUDY (CLEAR); COLOR,URINE YELLOW (YELLOW)
[2021-01-27 20:35] LABS: KETONES,URINE TRACE (NEGATIVE); LEUKOCYTE ESTERASE ,URINE SMALL (NEGATIVE); NITRITE,URINE NEGATIVE (NEGATIVE); PROTEIN,URINE DIPSTICK NEGATIVE (NEGATIVE); URINE UROBILINOGEN 0.2 mg/dL (0.2 - 1)
[2021-01-27 20:50] LABS: BACTERIA,URINE MODERATE /HPF; EPITHELIAL CELLS,URINE RARE /LPF; RBC,URINE 0-5 /HPF (0-5)
[2021-01-27] MEDS ORDERED: SODIUM CHLORIDE 0.9% 250ML 250 ML ONE (21:00)
[2021-01-28 03:01] VITALS: BP 130/63
== END 2021-01-28 03:15 | disposition home or self-care (01) ==
LOC: ER 16:32
DX: D64.9 Anemia, unspecified (principal); E11.65 Type 2 diabetes mellitus with hyperglycemia; I10 Essential (primary) hypertension; E78.5 Hyperlipidemia, unspecified; E03.9 Hypothyroidism, unspecified; E78.00 Pure hypercholesterolemia, unspecified
CPT/HCPCS: 36415; 80053; 81001; 85025; 85610; 86850; 86900; 86920; 99283; J7050; P9016

== ENCOUNTER → 2022-12-05 | Outpatient (CLI) | payer MEDICARE ==
[~2022-12-05] MED LIST changes: +IOPAMIDOL 370 MG/ML 100 ML INFUS..BTL INJ ONE; +SODIUM CHLORIDE 0.9% 250ML 500 ML ONE
[2022-12-05 13:45] LABS: CREATININE, SERUM 1.45 mg/dL (0.57-1.11)
== END ==
LOC: CT 12:48
PROVIDERS: ATTEND Urology
DX: R31.21 Asymptomatic microscopic hematuria (principal)
CPT/HCPCS: 36415; 74178; 82565; 84520; 96360; J7050; Q9967